=== PATIENT | male | born 2000 | race Caucasian/White ===

== ENCOUNTER 2021-12-25 20:40 | Emergency (ER) | payer OTHER | END 2021-12-25 22:40 | disposition home or self-care (01) | LOC: ER1 20:40 | DX: J18.9 Pneumonia, unspecified organism (principal); R09.89 Other specified symptoms and signs involving the circulatory and respiratory systems | CPT/HCPCS: 71046; 99283 ==

== ENCOUNTER 2022-02-23 15:06 | Emergency (ER) | payer SELFPAY | END 2022-02-23 18:57 | disposition home or self-care (01) | LOC: ER1 15:06 | DX: S70.12XA Contusion of left thigh, initial encounter (principal); S50.11XA Contusion of right forearm, initial encounter; W22.8XXA Striking against or struck by other objects, initial encounter; Y99.0 Civilian activity done for income or pay; Y92.89 Other specified places as the place of occurrence of the external cause | CPT/HCPCS: 71045; 72100; 73090; 73552; 73564; 99283 ==